=== PATIENT | female | born 1965 | race Caucasian/White ===

== ENCOUNTER 2016-09-15 12:09 | Emergency (ER) | payer MEDICARE ==
[~2016-09-15] VITALS: Ht 154.9 cm; Wt 68.2 kg
[~2016-09-15 12:09] MED LIST: ADDERALL20 MG PO; ADDERALL5 MG PO; ALEVE220 M2 OR; AMOX/K CLAV875 M1 PO; AMOXICILLIN500 MG PO; AMPHOTERICIN B IV; ANUCORT-HC25 MG RE; B COMPLE3 PO; CHROMIUM PIC500 MCG PO; CIPROFLOXACN500 MG PO; CLEOCIN150 MG PO; CLONAZEPAM0.5 MG PO; DIAZEPAM5 MG PO; DIFLUCAN100 MG PO; DIFLUCAN200 MG/101 IV; DOXYCYCL HYC100 MG PO; DOXYCYCLINE OR; FIORICET PO; FLEXERIL PO; FLEXERIL10 MG PO; GABAPENTIN300 MG PO; IBUPROFEN800 MG PO; LACRI-LUBE S.O.P. OS; LEXAPRO20 MG PO; LIQUITEARS OP; LITHIUM CARB300 MG PO; LORTAB 10-325 M1 TAB PO; LORTAB5 PO; MAG CITRATE PO; MEDDOSEPAK OR; MEDROL DOSE PAK; MIRALAX3350 N1 PO; MULT VITAMI1 PO; NAPROSYN500 MG PO; NICOTINE T21 MG/PATC TOP; NO HOME MEDS; OXYCONTIN40 MG PO; PERCOCET 5/325M1 TAB PO; POTASSIUM99 MG OR; PREVACID30 M2 PO; PROMETHAZINE25 MG PO; SILVADENE1 % TOP; STERAPRED DS10 MG PO; TORADOL OR; TRAZODONE100 MG PO; TRAZODONE50 MG PO; ULTRAM50 M1 PO; ULTRAM50 MG OR; ULTRAM50 MG PO; VALIUM10 MG OR; VICODIN HP1 TAB PO; VITAMIN C1000 MG PO; WELLBUTRIN SR150 MG PO
[2016-09-15 14:19] LABS: HEMATOCRIT 39.9 % (37.0-47.0); HEMOGLOBIN 13.3 g/dl (12.0-16.0); IMMATURE GRANULOCYTES 0.2 % (0.0-1.0); MEAN CELL VOLUME 91.3 fL CALC (80.0-100.0); MEAN CORPUSCULAR HGB 30.4 pG CALC (26.0-32.0); MEAN CORPUSCULAR HGB CONC 33.3 g/L CALC (32.0-36.0); NEUT# 2.06 thou/uL (2.00-7.15); RED BLOOD COUNT 4.37 mill/uL (4.20-5.60); RED CELL DISTRI WIDTH 12.2 % (11.5-15.5)
[2016-09-15 14:31] LABS: ALBUMIN 3.9 g/dL (3.2-5.0); ALKALINE PHOSPHATASE 103 u/l (38-126); ANION GAP 14 (6-22 (CALC)); BILIRUBIN, TOTAL 0.6 mg/dL (0.0-1.4); BUN 7 mg/dL (7-17); BUN/CREATININE RATIO 10 (12-20 (CALC)); CARBON DIOXIDE 27 mmol/l (22-30); CHLORIDE 105 mmol/l (95-108); CREATININE 0.8 mg/dL (0.5-1.0); GFR > 60 ML/MIN (>=60 (CALC)); GFR FOR AFR.AMER. > 60 ML/MIN (>=60 (CALC)); GLUCOSE 82 mg/dL (65-105); POTASSIUM 3.5 mmol/l (3.5-5.1); SGOT/AST 115 u/l (14-36); SGPT/ALT 110 u/l (9-52); SODIUM 143 mmol/l (137-146); TOTAL PROTEIN 7.4 g/dL (6.3-8.2)
[2016-09-15 17:02] VITALS: BP 131/88
== END 2016-09-15 16:30 | disposition short-term general hospital (02) ==
LOC: ED 12:09
PROVIDERS: Emergency Medicine
DX: L30.9 Dermatitis, unspecified (principal); B40.3 Cutaneous blastomycosis; M32.9 Systemic lupus erythematosus, unspecified; F17.210 Nicotine dependence, cigarettes, uncomplicated

== ENCOUNTER 2017-03-01 10:26 | Emergency (ER) | payer MEDICARE ==
[~2017-03-01] VITALS: Ht 154.9 cm; Wt 68.2 kg
[2017-03-01] MEDS ORDERED: BACTRIM DS1 TAB PO (11:30)
[2017-03-01] MEDS ORDERED: SILVADENE1 % EX (11:30)
[2017-03-01] MEDS ORDERED: EC-NAPROSYN500 MG PO (11:30)
[2017-03-01] MEDS ORDERED: FLEXERIL PO (11:54)
[2017-03-01 12:11] VITALS: BP 121/71
== END 2017-03-01 12:11 | disposition home or self-care (01) ==
LOC: ED 10:26
DX: S93.401A Sprain of unspecified ligament of right ankle, initial encounter (principal); S93.601A Unspecified sprain of right foot, initial encounter; M32.9 Systemic lupus erythematosus, unspecified; G89.29 Other chronic pain; M54.9 Dorsalgia, unspecified; W20.8XXA Other cause of strike by thrown, projected or falling object, initial encounter; Y93.89 Activity, other specified; Y92.512 Supermarket, store or market as the place of occurrence of the external cause

== ENCOUNTER 2017-08-22 07:10 | Emergency (ER) | payer MEDICARE ==
[~2017-08-22] VITALS: Ht 154.9 cm; Wt 70.0 kg
[~2017-08-22 07:10] MED LIST changes: +BACTRIM DS1 TAB PO; +EC-NAPROSYN500 MG PO; +SILVADENE1 % EX
[2017-08-22 07:46] LABS: HEMATOCRIT 40.7 % (37.0-47.0); HEMOGLOBIN 13.7 g/dl (12.0-16.0); IMMATURE GRANULOCYTES 0.2 % (0.0-1.0); MEAN CELL VOLUME 92.1 fL CALC (80.0-100.0); MEAN CORPUSCULAR HGB CONC 33.7 g/L CALC (32.0-36.0); NEUT# 6.86 thou/uL (2.00-7.15); RED BLOOD COUNT 4.42 mill/uL (4.20-5.60); RED CELL DISTRI WIDTH 12.7 % (11.5-15.5)
[2017-08-22 08:12] LABS: URINE BILIRUBIN - DIPSTICK NEGATIVE (NEGATIVE); URINE COLOR YELLOW; URINE GLUCOSE - DIPSTICK NEGATIVE (NEGATIVE); URINE KETONE NEGATIVE (NEGATIVE); URINE NITRITE - DIPSTICK NEGATIVE (Negative); URINE PH 5.5 (4.5-8.0); URINE PROTEIN - DIPSTICK NEGATIVE (NEG-TRACE)
[2017-08-22 08:13] LABS: ALBUMIN 4.3 g/dL (3.2-5.0); ALKALINE PHOSPHATASE 118 u/l (38-126); ANION GAP 17 (6-22 (CALC)); BUN 21 mg/dL (7-17); CARBON DIOXIDE 24 mmol/l (22-30); CHLORIDE 103 mmol/l (95-108); LIPASE 50 u/l (23-300); POTASSIUM 4.2 mmol/l (3.5-5.1); SGOT/AST 45 u/l (14-36); SGPT/ALT 42 u/l (9-52); SODIUM 140 mmol/l (137-146); TOTAL PROTEIN 7.8 g/dL (6.3-8.2)
[2017-08-22 08:15] LABS: URINE CLARITY CLEAR; URINE LEUK ESTERASE SMALL (NEGATIVE)
[2017-08-22 08:17] LABS: BUN/CREATININE RATIO 19 (12-20 (CALC)); CREATININE 1.1 mg/dL (0.5-1.0); GFR 52 ML/MIN (>=60 (CALC)); GFR FOR AFR.AMER. > 60 ML/MIN (>=60 (CALC))
[2017-08-22] MEDS ORDERED: PROZAC10 MG PO (08:18)
[2017-08-22] MEDS ORDERED: FLEXERIL5 MG PO (08:19)
[2017-08-22 08:27] LABS: URINE BACTERIA RARE hpf; URINE BLOOD DIPSTICK NEGATIVE (NEGATIVE); URINE EPITHELIAL CELLS RARE EPI/hpf (0-FEW); URINE RBC 0-2 RBC/hpf (0-5)
[2017-08-22] MEDS ORDERED: CIPROFLOXACN500 MG PO (09:23)
[2017-08-22] MEDS ORDERED: LORTAB 1010 MG PO (09:23)
[2017-08-22 09:44] VITALS: BP 118/60
== END 2017-08-22 10:00 | disposition home or self-care (01) ==
LOC: ED 07:10
PROVIDERS: Emergency Medicine
DX: N39.0 Urinary tract infection, site not specified (principal); B96.20 Unspecified Escherichia coli [E. coli] as the cause of diseases classified elsewhere; G89.29 Other chronic pain; M54.9 Dorsalgia, unspecified; M32.9 Systemic lupus erythematosus, unspecified; F17.210 Nicotine dependence, cigarettes, uncomplicated

== ENCOUNTER 2018-06-28 05:59 | Emergency (ER) | payer MEDICARE ==
[~2018-06-28] VITALS: Ht 154.9 cm; Wt 68.0 kg
[~2018-06-28 05:59] MED LIST changes: +DOXYCYC MONO100 M1 PO; +FLEXERIL5 MG PO; +LORTAB 1010 MG PO; +METRONIDAZOL500 MG PO; +MOTRIN800 MG PO; +PROZAC10 MG PO; +PROZAC20 MG PO
[2018-06-28 06:57] VITALS: BP 108/73
[2018-06-28] MEDS ORDERED: TORADOL PO (08:10)
[2018-06-28] MEDS ORDERED: CYCLOBENZAPR5 MG PO (08:10)
[2018-06-28] MEDS ORDERED: VOLTAREN1%GEL TOP (08:10)
== END 2018-06-28 08:48 | disposition home or self-care (01) ==
LOC: ED 05:59
PROC: 2W3LX1Z Immobilization of Right Lower Extremity using Splint (ICD-10-PCS; principal; 2018-06-28)
DX: S80.01XA Contusion of right knee, initial encounter (principal); S30.0XXA Contusion of lower back and pelvis, initial encounter; S90.31XA Contusion of right foot, initial encounter; S90.01XA Contusion of right ankle, initial encounter; M25.561 Pain in right knee; M54.5 Low back pain; M25.571 Pain in right ankle and joints of right foot; F17.210 Nicotine dependence, cigarettes, uncomplicated; M54.2 Cervicalgia; W01.0XXA Fall on same level from slipping, tripping and stumbling without subsequent striking against object, initial encounter; Y92.009 Unspecified place in unspecified non-institutional (private) residence as the place of occurrence of the external cause
CPT/HCPCS: L1830

== ENCOUNTER 2018-12-14 02:47 | Emergency (ER) | payer MEDICARE ==
[~2018-12-14] VITALS: Ht 154.9 cm; Wt 66.8 kg
[~2018-12-14 02:47] MED LIST changes: +CYCLOBENZAPR5 MG PO; +TORADOL PO; +VOLTAREN1%GEL TOP
[2018-12-14] MEDS ORDERED: VOLTAREN - GENE75 MG PO (04:56)
[2018-12-14 06:00] VITALS: BP 118/65
== END 2018-12-14 06:30 | disposition home or self-care (01) ==
LOC: ED 02:47
DX: G89.29 Other chronic pain (principal); M54.2 Cervicalgia; R51 Headache; R11.0 Nausea

== ENCOUNTER 2018-12-19 16:15 | Emergency (ER) | payer MEDICARE ==
[~2018-12-19] VITALS: Ht 154.9 cm; Wt 63.6 kg
[2018-12-19 16:15] VITALS: BP 142/82
[~2018-12-19 16:15] MED LIST changes: +VOLTAREN - GENE75 MG PO
== END 2018-12-19 19:13 ==
LOC: ED 16:15
PROC: 3E0T3BZ Introduction of Anesthetic Agent into Peripheral Nerves and Plexi, Percutaneous Approach (ICD-10-PCS; principal; 2018-12-19)
DX: S62.522B Displaced fracture of distal phalanx of left thumb, initial encounter for open fracture (principal); W29.8XXA Contact with other powered hand tools and household machinery, initial encounter; Y93.H2 Activity, gardening and landscaping; Y92.007 Garden or yard of unspecified non-institutional (private) residence as the place of occurrence of the external cause

== ENCOUNTER 2019-02-14 00:10 | Emergency (ER) | payer MEDICARE ==
[~2019-02-14] VITALS: Ht 154.9 cm; Wt 62.8 kg
[2019-02-14 01:29] LABS: HEMATOCRIT 41.5 % (37.0-47.0); HEMOGLOBIN 13.7 g/dl (12.0-16.0); IMMATURE GRANULOCYTES 0.3 % (0.0-5.0); MEAN CELL VOLUME 92.2 fL CALC (80.0-100.0); MEAN CORPUSCULAR HGB 30.4 pG CALC (26.0-32.0); NEUT# 3.14 thou/uL (2.00-7.15); RED BLOOD COUNT 4.5 mill/uL (4.20-5.60); RED CELL DISTRI WIDTH 12.4 % (11.5-15.5)
[2019-02-14 01:30] LABS: URINE BILIRUBIN - DIPSTICK NEGATIVE (NEGATIVE); URINE BLOOD DIPSTICK NEGATIVE (NEGATIVE); URINE COLOR YELLOW; URINE GLUCOSE - DIPSTICK NEGATIVE (NEGATIVE); URINE KETONE NEGATIVE (NEGATIVE); URINE LEUK ESTERASE TRACE (NEGATIVE); URINE NITRITE - DIPSTICK NEGATIVE (Negative); URINE PROTEIN - DIPSTICK NEGATIVE (NEG-TRACE); URINE SPECIFIC GRAVITY 1.015
[2019-02-14 01:34] LABS: BARBITURATES NEGATIVE (NEGATIVE); COCAINE NEGATIVE (NEGATIVE); METHADONE NEGATIVE (NEGATIVE); OXCYCODONE NEGATIVE (NEGATIVE); TETRAHYDROCANNABIONOL NEGATIVE (NEGATIVE); TRICYLIC ANTIDEPRESSANTS NEGATIVE (NEGATIVE)
[2019-02-14 01:41] LABS: ALBUMIN 4.6 g/dL (3.2-5.0); ALKALINE PHOSPHATASE 88 u/l (38-126); BUN 14 mg/dL (7-17); BUN/CREATININE RATIO 16 (12-20 (CALC)); CHLORIDE 105 mmol/l (95-108); CREATININE 0.9 mg/dL (0.5-1.0); GFR > 60 ML/MIN (>=60 (CALC)); GFR FOR AFR.AMER. > 60 ML/MIN (>=60 (CALC)); POTASSIUM 4.5 mmol/l (3.5-5.1); SGOT/AST 28 u/l (14-36); SODIUM 142 mmol/l (137-146); TOTAL PROTEIN 7.5 g/dL (6.3-8.2)
[2019-02-14 01:47] LABS: ANION GAP 13 (6-22 (CALC)); BILIRUBIN, TOTAL 0.4 mg/dL (0.0-1.4); CARBON DIOXIDE 29 mmol/l (22-30)
[2019-02-14 01:52] LABS: MYOGLOBIN 69 ng/mL (0 - 62)
[2019-02-14] MEDS ORDERED: ULTRAM50 M1 PO (02:26)
[2019-02-14 03:26] VITALS: BP 126/70
== END 2019-02-14 03:26 | disposition home or self-care (01) ==
LOC: ED 00:10
PROVIDERS: Emergency Medicine
DX: M79.10 Myalgia, unspecified site (principal); F17.200 Nicotine dependence, unspecified, uncomplicated

== ENCOUNTER 2020-05-12 11:39 | Emergency (ER) | payer MEDICARE, MEDICAID ==
[~2020-05-12] VITALS: Ht 154.9 cm; Wt 80.0 kg
[2020-05-12] MEDS ORDERED: EPIPEN 2-P0.3 MG/0.3 IM (11:55)
[2020-05-12] MEDS ORDERED: PREDNISONE50 MG PO (11:55)
[2020-05-12 12:09] VITALS: BP 112/68
== END 2020-05-12 12:44 | disposition home or self-care (01) ==
LOC: ED 11:39
DX: T63.441A Toxic effect of venom of bees, accidental (unintentional), initial encounter (principal); F31.9 Bipolar disorder, unspecified; F17.200 Nicotine dependence, unspecified, uncomplicated

== ENCOUNTER 2023-02-10 16:19 | Emergency (ER) | payer MEDICARE, MEDICAID ==
[~2023-02-10] VITALS: Ht 154.9 cm; Wt 68.0 kg
[~2023-02-10 16:19] MED LIST changes: +EPIPEN 2-P0.3 MG/0.3 IM; +PREDNISONE50 MG PO
[2023-02-10 16:32] VITALS: BP 144/96
[2023-02-10 16:46] VITALS: BP 123/82
[2023-02-10] MEDS ORDERED: ALBENDAZOLE200 MG PO (16:47)
[2023-02-10] MEDS ORDERED: CLINDAMYCIN HY150 MG PO (16:47)
[2023-02-10 16:53] VITALS: BP 123/82
== END 2023-02-10 17:13 | disposition home or self-care (01) ==
LOC: ED 16:19
DX: K04.7 Periapical abscess without sinus (principal); K02.9 Dental caries, unspecified; B76.9 Hookworm disease, unspecified; S02.5XXA Fracture of tooth (traumatic), initial encounter for closed fracture; X58.XXXA Exposure to other specified factors, initial encounter; F17.200 Nicotine dependence, unspecified, uncomplicated

== ENCOUNTER 2023-06-25 00:04 | Emergency (ER) | payer MEDICARE ==
[~2023-06-25] VITALS: Ht 154.9 cm; Wt 68.0 kg
[~2023-06-25 00:04] MED LIST changes: +ALBENDAZOLE200 MG PO; +CLINDAMYCIN HY150 MG PO; +CLINDAMYCIN300 M1 PO
[2023-06-25 00:41] VITALS: BP 119/85
[2023-06-25 00:45] VITALS: BP 126/82
[2023-06-25 01:00] VITALS: BP 126/83
[2023-06-25] MEDS ORDERED: CLINDAMYCIN300 M1 PO (01:00)
[2023-06-25 01:15] VITALS: BP 135/79
[2023-06-25 01:25] VITALS: BP 135/79
[2023-06-25 01:30] VITALS: BP 142/90
== END 2023-06-25 01:37 | disposition home or self-care (01) ==
LOC: ED 00:04
DX: K04.7 Periapical abscess without sinus (principal); K02.9 Dental caries, unspecified

== ENCOUNTER 2024-07-20 18:07 | Emergency (ER) | payer MEDICARE ==
[~2024-07-20] VITALS: Ht 154.9 cm; Wt 67.0 kg
[~2024-07-20 18:07] MED LIST changes: +MACROBID100 M1 PO; +PERMETHRIN5 % EX
[2024-07-20 18:25] VITALS: BP 145/90
[2024-07-20] MEDS ORDERED: DOXYCYCLINE100 MG PO (18:29)
[2024-07-20 18:47] VITALS: BP 145/90
== END 2024-07-20 18:55 | disposition home or self-care (01) ==
LOC: ED 18:07
DX: L03.114 Cellulitis of left upper limb (principal); L03.113 Cellulitis of right upper limb; F17.200 Nicotine dependence, unspecified, uncomplicated

== ENCOUNTER 2024-08-07 20:55 | Emergency (ER) | payer MEDICARE ==
[~2024-08-07] VITALS: Ht 154.9 cm; Wt 68.0 kg
[~2024-08-07 20:55] MED LIST changes: +DOXYCYCLINE100 MG PO
[2024-08-07 21:49] LABS: URINE BILIRUBIN - DIPSTICK Negative (NEGATIVE); URINE BLOOD DIPSTICK Negative (NEGATIVE); URINE GLUCOSE - DIPSTICK Negative (NEGATIVE); URINE KETONE Negative (NEGATIVE); URINE NITRITE - DIPSTICK Negative (Negative); URINE PROTEIN - DIPSTICK Trace mg/dL (NEG-TRACE); URINE SPECIFIC GRAVITY 1.025; URINE UROBILINOGEN - DIPSTICK 0.2 E.U./dL (0.2)
[2024-08-07 21:50] LABS: URINE COLOR Yellow; URINE LEUK ESTERASE Small (NEGATIVE)
[2024-08-07 21:56] LABS: URINE WBC 20-50 WBC/hpf (0-5)
[2024-08-07 21:57] LABS: URINE BACTERIA MODERATE hpf; URINE RBC 0-2 RBC/hpf (0-5); URINE SQUAMOUS EPITHELIAL CELL FEW EPI/hpf (0-FEW); URINE TRANSITIONAL EPI. CELLS FEW hpf
[2024-08-07] MEDS ORDERED: DOXYCYCLINE100 MG PO (22:34)
[2024-08-07] MEDS ORDERED: MACROBID100 M1 PO (22:34)
[2024-08-07] MEDS ORDERED: NITROFURANTOIN MONOHYDRATE/MAC (MACROBID) 100 MG/CAP PO ONE (22:35)
[2024-08-07] MEDS ORDERED: ONDANSETRON4 MG PO (22:35)
[2024-08-07 23:27] VITALS: BP 148/100
[2024-08-10] MEDS ORDERED: BACTRIM DS1 TAB PO (12:40)
== END 2024-08-07 23:23 | disposition home or self-care (01) ==
LOC: ED 20:55
PROVIDERS: Family Medicine
DX: N39.0 Urinary tract infection, site not specified (principal); B96.4 Proteus (mirabilis) (morganii) as the cause of diseases classified elsewhere; F17.210 Nicotine dependence, cigarettes, uncomplicated

== ENCOUNTER 2024-09-04 04:29 | Emergency (ER) | payer MEDICARE ==
[~2024-09-04] VITALS: Ht 154.9 cm; Wt 68.0 kg
[~2024-09-04 04:29] MED LIST changes: +ONDANSETRON4 MG PO
[2024-09-04 04:39] VITALS: BP 144/115
[2024-09-04 04:44] VITALS: BP 122/72
[2024-09-04] MEDS ORDERED: oxyCODONE 5MG/ ACETAMINOPHEN 325MG TAB PO ONE (04:45)
[2024-09-04] MEDS ORDERED: DOXYCYCLINE HYCLATE 100 MG/CAP PO ONE (04:45)
[2024-09-04] MEDS ORDERED: LIDOCAINE VISCOUS 2% 15 ML UDC PO ONE (04:45)
[2024-09-04] MEDS ORDERED: LIDOCAINE21 MT (04:48)
[2024-09-04] MEDS ORDERED: PERCOCET 5/325M1 TAB PO (04:48)
[2024-09-04] MEDS ORDERED: DOXYCYCL HYC100 M4 PO (04:48)
[2024-09-04 05:00] VITALS: BP 118/88
[2024-09-04 05:17] VITALS: BP 118/88
== END 2024-09-04 05:17 | disposition home or self-care (01) ==
LOC: ED 04:29
DX: K03.81 Cracked tooth (principal); F17.200 Nicotine dependence, unspecified, uncomplicated